=== PATIENT | male | born 2000 | race Caucasian/White ===

== ENCOUNTER 2022-02-21 04:17 | Emergency (ER) | payer OTHER ==
[~2022-02-21] VITALS: Ht 177.8 cm; Wt 65.3 kg
[2022-02-21 04:22] VITALS: BP 119/73
--- NOTE | 2022-02-21 04:32 | NUR ---
PT TAKEN TO BED 4
[2022-02-21] MEDS ORDERED: ONDA8TAB87 PO (04:45)
[2022-02-21 05:10] VITALS: BP 119/73
== END 2022-02-21 05:10 | disposition home or self-care (01) ==
LOC: MED 04:17
DX: R11.2 Nausea with vomiting, unspecified (principal); Z90.49 Acquired absence of other specified parts of digestive tract
CPT/HCPCS: 99283